=== PATIENT | male | born 1965 | race Caucasian/White ===

== ENCOUNTER 2017-10-13 05:17 | Inpatient (IN) | payer OTHER ==
[~2017-10-13] VITALS: Ht 170.2 cm; Wt 79.8 kg
[2017-10-13] VITALS (28 sets, daily range): BP systolic 106–137; BP diastolic 55–83; PULSE 59–77; RESP 11–22; Ht 170.2 cm; Wt 79.8 kg
[2017-10-13] MEDS ORDERED: SURGIFOAM POWDER 1 GM KIT ONE (06:48)
[2017-10-13] MEDS ORDERED: CA CHLORIDE 10% 10 ML SYRINGE ONE (06:49)
[2017-10-13] MEDS ORDERED: POLYMYXIN/BACITRACIN 1L IRRIG ONE (06:49)
[2017-10-13] MEDS ORDERED: BUPIVACAINE 0.25% (MPF) 30 ML INJ ONE (06:49)
[2017-10-13] MEDS ORDERED: THROMBIN 5000 UNIT VIAL ONE (06:49)
[2017-10-13] MEDS ORDERED: BUPIVACAINE 0.25%/EPI (SDV) 30 ML INJ ONE (06:54)
[2017-10-13] MEDS ORDERED: FENTAnyl 50 MCG/ML VIAL ONE ×3 (07:02→08:26)
--- NOTE | 2017-10-13 07:06 | HPN ---
Date/Time of Note Date/Time of Note DATE: 10/13/17 TIME: 07:06 Interval H&P Admission Note Pt. seen H&P reviewed: No system changes MUKUL RAMSAY MD Oct 13, 2017 07:06
[2017-10-13] MEDS ORDERED: HYDROmorphONE 0.2 MG/ML PCA IV SCH (07:30)
[2017-10-13] MEDS ORDERED: NALOXONE (0.4 MG/ML) INJ IV PRN (07:30)
[2017-10-13] MEDS ORDERED: DIPHENHYDRAMINE 50 MG INJ IV PRN ×2 (07:30→08:00)
[2017-10-13] MEDS ORDERED: HYDROmorphONE 0.5 MG/0.5 ML SYG IV PRN (07:30)
[2017-10-13] MEDS ORDERED: CYCLOBENZAPRINE 10 MG TAB PO PRN (07:30)
[2017-10-13] MEDS ORDERED: DIPHENHYDRAMINE 25 MG CAP PO PRN (07:30)
[2017-10-13] MEDS ORDERED: BISACODYL 10 MG SUPP PR PRN (07:30)
[2017-10-13] MEDS ORDERED: AL HYDROX/MG HYDROX/SIMETH 30 ML CUP PO PRN (07:30)
[2017-10-13] MEDS ORDERED: HYDROCODONE/APAP (10/325) TAB PO PRN ×2 (07:30)
[2017-10-13] MEDS ORDERED: ONDANSETRON 4 MG INJ IV PRN ×2 (07:30→08:00)
[2017-10-13] MEDS ORDERED: CEPASTAT LOZENGE MT PRN (07:30)
[2017-10-13] MEDS ORDERED: FENTAnyl 50 MCG/ML VIAL IV PRN ×3 (08:00)
[2017-10-13] MEDS ORDERED: MEPERIDINE 25 MG INJ IV PRN (08:00)
[2017-10-13] MEDS ORDERED: HYDROmorphONE (0.2 MG/ML) 10ML SYG IV PRN ×3 (08:00)
[2017-10-13] MEDS ORDERED: METOCLOPRAMIDE 10 MG INJ IV PRN (08:00)
[2017-10-13] MEDS ORDERED: ROCURONIUM 50 MG INJ ONE (08:34)
[2017-10-13] MEDS ORDERED: SUCCINYLCHOLINE CHLORIDE 100 MG/5 ML SYG IV ONE (08:34)
[2017-10-13] MEDS ORDERED: PROPOFOL 20 ML ONE (08:34)
[2017-10-13] MEDS ORDERED: LIDOCAINE 2% (SDV) 5 ML INJ ONE (08:34)
[2017-10-13] MEDS ORDERED: CEFAZOLIN 1 GM INJ ONE (08:34)
[2017-10-13] MEDS ORDERED: SUGAMMADEX SODIUM 200 MG/2 ML VIAL IV ONE (08:34)
[2017-10-13] MEDS ORDERED: HYDROmorphONE 0.2 MG/ML PCA ONE (09:11)
--- NOTE | 2017-10-13 09:17 | RADRPT ---
PROCEDURE: XR Lumbar Spine one view. CLINICAL INDICATION: Low back pain. Intraoperative. TECHNIQUE: Prone portable cross-table lateral. COMPARISON: No prior studies are available for comparison. FINDINGS: For the purposes of this report, the last apparent true disc level is considered to be L5-S1. Based on this, the posterior surgical instrument is present overlying the L3-4 level. IMPRESSION: 1. Intraoperative imaging as described above. RPTAT: QQ .Dereck Talamantes MD, MD Date Time Electronically viewed and signed by .Dereck Talamantes MD, on 10/13/2017 09:17 .R/
--- NOTE | 2017-10-13 09:18 | RADRPT ---
PROCEDURE: XR Lumbar Spine one view. CLINICAL INDICATION: Low back pain. Intraoperative. TECHNIQUE: Prone portable cross-table lateral. COMPARISON: No prior studies are available for comparison. FINDINGS: For the purposes of this report, the last apparent true disc level is considered to be L5-S1. Based on this, the posterior needle markers are present overlying the L4 spinous process level and S1 spi nous process level. IMPRESSION: 1. Intraoperative imaging as described above. RPTAT: QQ .Dereck Talamantes MD, Date Time Electronically viewed and signed by .Dereck Talamantes MD, on 10/13/2017 09:18 .R/
--- NOTE | 2017-10-13 09:24 | SIPON ---
Date/Time of Note Date/Time of Note DATE: 10/13/17 TIME: 09:23 Operative Report Preoperative Diagnosis lumbar stenosis Postoperative Diagnosis lumbar stenosis Operation/Procedure Performed lumbar decompression Surgeon see signature line executive marketing assistant alexia serrano Anesthesia: general Estimated blood loss: 10 - 50 ml's Transfusion Required none Specimen none Grafts/Implants none Complications none MUKUL RAMSAY MD Oct 13, 2017 09:24
--- NOTE | 2017-10-13 10:14 | CONS ---
Date/Time of Note Date/Time of Note DATE: 10/13/17 TIME: 10:10 Assessment/Plan Assessment/Plan Problems: (1) S/P lumbar laminectomy Onset Date: ~ 10/13/2017 Status: Acute Comment: He is seen in postanesthesia recovery. At this time he is doing well without evidence of complications postop. Is cleared to go to regular orthopedic floor for management of her rehabilitation. Rehabilitation next potential is expected to be good (2) Migraine syndrome Status: Chronic Comment: Noted. He has relatively active migraine syndrome given his age however does not meet criteria for prophylactic therapy (3) Sleep apnea in adult Status: Chronic Comment: Noted. (4) Left rotator cuff tear arthropathy Status: Chronic Comment: Noted. Be aware of this during rehabilitation Consultation Date/Type/Reason Admit Date/Time Oct 13, 2017 at 05:17 Date of Consultation: Oct 13, 2017 Type of Consultation: Internal medicine Reason for Consultation Postoperative assistance after lumbar laminectomy L4-5 L5-S1 Referring Provider: MUKUL RAMSAY MD Hx of Present Illness Charmil 52-year-old gentleman who is brought in after outpatient failure to respond to conservative treatment for lumbar disc disease. He is now postoperative. Constitutional: no complaints Eyes: no complaints ENT: no complaints Respiratory: no complaints (Please note he had a recent bronchitis that was treated with initially albuterol and then with Advair. This fully resolved and was an isolated event) Cardiovascular: no complaints Gastrointestinal: no complaints Genitourinary: no complaints Musculoskeletal: back pain Skin: no complaints Neurologic: other (Migraine syndrome he takes ibuprofen for this 3 days per month) Endocrine: no complaints Lymphatic: no complaints Psychological: nl mood/affect, no complaints Immunologic: no complaints Past Medical History Medical History: other (Migraine syndrome; obstructive sleep apnea; left rotator cuff inflammation) Past Surgical History Past Surgical Hx: other (She is status post right shoulder arthroscopy. Status post left-sided L4-5 discectomy in 2002) Family History Significant Family History: no pertinent family hx Social History Alcohol Use: none Smoking Status: Never smoker Drug Use: none Exam/Review of Systems Vital Signs Vitals Vital Signs Date Time Temp Pulse Resp B/P Pulse Ox O2 Delivery O2 Flow Rate FiO2 10/13/17 09:56 64 14 124/75 97 Room Air 10/13/17 09:19 97.8 Exam Constitutional: alert, oriented Head: atraumatic, normocephalic Eyes: EOMI, PERRL, nl conjunctiva, nl lids, nl sclera ENMT: mucosa pink and moist, nl external ears & nose, nl lips & teeth, nl nasal mucosa & septum Neck: non-tender, supple Respiratory: clear to auscultation, normal air movement Cardiovascular: nl pulses, regular rate and rhythm Gastrointestinal: nl liver, spleen, non-tender, soft Musculoskeletal: nl extremities to inspection, other (Nonambulatory. Some limited [place] limitation of rotation at the left shoulder) Extremities: normal pulses Neurological: CLOTH HANDLER II-XII intact, nl mental status, nl speech, nl strength Skin: nl turgor, rash or lesions Lymph: nl lymph nodes Medications Medications Current Medications Potassium Chloride/Dextrose/ Sod Cl (D5-1/2ns + KCl 20 Meq) 1,000 ml @ 100 mls/ hr Q10H IV ; Start 10/13/17 at 07:06 Acetaminophen/ Hydrocodone Bitart ([place] (10/325)) 1 tab Q4H PRN PO PAIN LEVEL 1-5; Start 10/13/17 at 07:30; Status UNV Acetaminophen/ Hydrocodone Bitart ([place] (10/325)) 2 tab Q4H PRN PO PAIN LEVEL 6-10; Start 10/13/17 at 07:30; Status UNV Hydromorphone HCl 0.2 mg 0.2 mg Q1H PRN IV BREAKTHROUGH PAIN; Start 10/13/17 at 07:30; Status UNV Cefazolin Sodium (Ancef 1 Gm/50 ml (Pmx)) 50 ml @ 100 mls/hr Q8H IVPB ; Start 10/13/17 at 16:00; Stop 10/14/17 at 08:29 Ondansetron HCl (Zofran Inj) 4 mg Q6H PRN IV NAUSEA AND/OR VOMITING; Start at 07:30; Status UNV Bisacodyl (Dulcolax Supp) 10 mg DAILY PRN [place] CONSTIPATION; Start 10/13/17 at 07:30; Status UNV Docusate Sodium (Colace) 100 mg BID PO ; Start 10/13/17 at 12:00 Pantoprazole (Protonix Iv) 40 mg DAILY@06 IV ; Start 10/14/17 at 06:00; Status UNV Al Hydrox/Mg Hydrox/Simethicone (Mag-Al Plus) 15 ml Q6H PRN PO CONSTIPATION/ DYSPEPSIA; Start 10/13/17 at 07:30; Status UNV Acetaminophen (Tylenol Tab) 650 mg Q4H PRN PO SAWYER OR TEMP GREATER THAN 101.3F; Start 10/13/17 at 07:30 Cyclobenzaprine HCl (Flexeril) 10 mg TID PRN PO MUSCLE SPASMS; Start 10/13/17 at 07:30; Status UNV Phenol (Cepastat Lozenge) 1 lozenge PRN PRN [place] SORE THROAT; Start 10/13/17 at 07:30; Status UNV Diphenhydramine HCl (Benadryl) 25 mg Q6H PRN PO ITCHING; Start 10/13/17 at 07: 30 Diphenhydramine HCl (Benadryl) 25 mg Q6H PRN IV ITCHING; Start 10/13/17 at 07: 30 Naloxone HCl (Narcan) 0.2 mg Q2M PRN IV RR 8 BREATHS/MIN OR LESS; Start at 07:30 Hydromorphone HCl (Dilaudid TECHNICAL OPERATIONS VICE PRESIDENT) TECHNICAL OPERATIONS VICE PRESIDENT to be started in PACU Q4PCA IV Last administered on 10/13/17t 09:33; Admin Dose 6 MG; Start 10/13/17 at 07:30 Miscellaneous Information 1. Hold TECHNICAL OPERATIONS VICE PRESIDENT at 1,000... TECHNICAL OPERATIONS VICE PRESIDENT IV ; Start 10/13/17 at 07 :30 SHAN SAEED MD Oct 13, 2017 10:14
--- NOTE | 2017-10-13 10:27 | OPR ---
DATE OF OPERATION: 10/13/2017 PREOPERATIVE DIAGNOSES: 1. Right L4-L5 and L5-S1 stenosis with radiculopathy. 2. History of left L5-S1 decompression. 3. Transitional S1 vertebra. POSTOPERATIVE DIAGNOSES: 1. Right L4-L5 and L5-S1 stenosis with radiculopathy. 2. History of left L5-S1 decompression. 3. Transitional S1 vertebra. OPERATION PERFORMED: 1. Right L4-L5 and right L5-S1 decompression with decompression right L4, L5, and S1 nerve roots. 2. Use of operative microscope. 3. Lateral localizing film x2. 4. Intraoperative neuromonitoring (1.5 hours). PRIMARY SURGEON: Abbe Luajn MD YARN WRAPPER: Josue Jimenes. FINDINGS: Neuromonitoring at the start of the case revealed right L4 amplitude down 30%, left L5 do wn 20%, right L5 down 30%, left S1 down 10%, right S1 down 60%. At the end of the case, nerve signa ls returned to normal. The patient had right-sided stenosis at L4-5 and L5-S1. ESTIMATED BLOOD LOSS: 40 mL. DRAINS: None. SPECIMENS: None. COMPLICATIONS OF PROCEDURES: None. ANESTHESIOLOGIST: Jermaine. TYPE OF ANESTHESIA: General. INDICATIONS FOR PROCEDURE: This is a 52-year-old gentleman who had previously undergone left L5-S1 decompression. He developed right lumbosacral radiculopathy in the setting of stenosis. He failed nonoperative measures; therefore, I recommended proceeding with the above-mentioned surgery. Preope ratively, we discussed the risks, benefits, and alternatives. He understood and wished to proceed. DESCRIPTION OF PROCEDURE IN DETAIL: The patient was identified in the preoperative holding area, [facility], taken to the operating room, where he was successfully placed under general an esthesia. Neuromonitoring leads were placed, sequential compressive devices were applied. Neuromon itoring was utilized during the procedure for 1.5 hours to include SSEP, MEP, and EMG. This was per formed by [employer]. Start time was 7:30, end time was 9:00 a.m. The patient was placed on the operating room table in prone position over a [place] frame. All bony prominences were well padd ed. The back was then prepped and draped in the usual sterile fashion. Spinal needles were placed and lateral localizing films obtained to confirm the correct levels. Once this was confirmed, I inj ected the skin and subcutaneous tissue with Marcaine and epinephrine. Incision was made over the L4 -5 and L5-S1 level. I took care to confirm the correct levels as the patient has a transitional S1 vertebra. I incised down to dorsal fascia, which was incised with Bovie cautery. I then subperiost eally dissected the right L4 and L5 lamina. Leyla retractor was placed. [place] was then placed under what was felt to be the lamina and lateral localizing films obtained to confirm the correct le vels. Once this was confirmed, microscope was brought in and a right-sided hemilaminotomy, partial medial facetectomy, and foraminotomy was performed at L4-5 and L5-S1. Ligamentum flavum was then sh arply dissected. I decompressed the lateral recess. I decompressed the canal and the right L4, L5, and S1 nerve roots for stenosis. Once this was done, all nerve signals returned to normal. I exam ined the disks and there was no evidence of disk herniations. I achieved hemostasis with bipolar ca utery and Surgifoam. I irrigated the wound. There was no leak of CSF after Valsalva maneuver was p erformed. The wound was dry and therefore, I elected not to place a drain. I passed an epidural ca theter through which I injected 100 mcg of fentanyl. Catheter was pulled. PPP and thrombin were in jected over the dura for hemostatic purposes. The retractors were removed. This was done of course after irrigation. I then closed the deep fascia with #1 Vicryl stitch. I closed subcutaneous tiss ue with 2-0 Vicryl stitch. A 4-0 Monocryl closure was then performed. Dermabond was then applied. The patient was then awakened from anesthesia and taken to recovery room in stable condition. Lap, sponge, and instrument counts were correct x2. There were no apparent complications during the pro cedure. The patient will be admitted to the orthopedic shah for routine postoperative care to include pain c ontrol, neurovascular checks, antibiotics, and physical therapy. Dictated By: ABBE YOUNG/SAIRA Conf#: [id number] DID#: [id number]
[2017-10-13] MEDS: D5W-0.45 NACL + KCL 20 MEQ 1,000 ML IV SCH ×3 (11:52→22:13)
[2017-10-13] MEDS: DOCUSATE SODIUM 100 MG CAP PO SCH ×2 (11:52→22:12)
[2017-10-13] MEDS: ACETAMINOPHEN 325 MG TAB PO PRN ×2 (12:01→22:19)
[2017-10-13] MEDS: CEFAZOLIN 1 GM/50 ML (PMX) 50 ML IVPB SCH (16:33)
[2017-10-14] MEDS: CEFAZOLIN 1 GM/50 ML (PMX) 50 ML IVPB SCH ×2 (00:15→08:29)
[2017-10-14 02:49] VITALS: BP 114/63; RESP 21
[2017-10-14 05:29] LABS: ABNORMAL IP MESSAGE 1; BASOPHILS % 0.2 % (0.0-2.0); EOSINOPHILS # 0.1 10^3/ul (0.0-0.5); EOSINOPHILS % 0.5 % (0.0-7.0); HEMATOCRIT 39.5 % (42.0-52.0); HEMOGLOBIN 13.5 g/dl (14.0-18.0); LYMPHOCYTES # 2.3 10^3/ul (0.8-2.9); LYMPHOCYTES % 18.7 % (15.0-51.0); MEAN CORPUSCULAR HGB CONC 34.2 g/dl (32.0-37.0); MEAN CORPUSCULAR VOLUME 90.6 fl (82.0-101.0); MONOCYTE # 1.6 10^3/ul (0.3-0.9); MONOCYTES % 12.8 % (0.0-11.0); NEUTROPHIL # 8.2 10^3/ul (1.6-7.5); NEUTROPHILS % 67.1 % (39.0-77.0); PLATELET COUNT 199 10^3/UL (140-415); POSITIVE DIFF @See below; RED BLOOD COUNT 4.36 10^6/ul (4.70-6.10); RED CELL DISTRIBUTION WIDTH 12.4 % (11.5-14.5); WHITE BLOOD COUNT 12.3 10^3/ul (4.8-10.8)
[2017-10-14 05:56] LABS: CREATININE 1.16 mg/dl (0.61-1.24); POTASSIUM 4.1 mmol/L (3.5-5.1)
[2017-10-14] MEDS ORDERED: PANTOPRAZOLE 40 MG INJ IV SCH (06:00)
[2017-10-14] MEDS: ACETAMINOPHEN 325 MG TAB PO PRN (06:21)
[2017-10-14 08:27] VITALS: BP 127/71; RESP 20
[2017-10-14] MEDS: DOCUSATE SODIUM 100 MG CAP PO SCH (08:29)
[2017-10-14] MEDS ORDERED: SUMATRIPTAN 50 MG TAB PO ONE (10:00)
[2017-10-14] MEDS ORDERED: ACETAMINOPHEN 325 MG TAB PO ONE (10:00)
--- NOTE | 2017-10-14 12:07 | DS ---
Date/Time of Note Date/Time of Note DATE: 10/14/17 TIME: 12:07 Discharge Summary Admission/Discharge Info Admit Date/Time Oct 13, 2017 at 05:17 Discharge Date/Time October 14 Discharge Diagnosis Lumbar stenosis Procedures Lumbar decompression Hospital Course The patient was admitted to the orthopedic shah after undergoing the above procedure. Postoperative course was uncomplicated. By postoperative day 1 the patient was deemed stable for discharge with follow-up arranged with the undersigned. Primary Care Provider Not On Staff Doctor Pending Labs Laboratory Tests Test 10/14/17 05:07 White Blood Count 12.310^3/ul (4.8-10.8) Red Blood Count 4.3610^6/ul (4.70-6.10) Hemoglobin 13.5g/dl (14.0-18.0) Hematocrit 39.5% (42.0-52.0) Mean Corpuscular Volume 90.6fl (82.0-101.0) Mean Corpuscular Hemoglobin 31.0pg (29.0-33.0) Mean Corpuscular Hemoglobin Concent 34.2g/dl (32.0-37.0) Red Cell Distribution Width 12.4% (11.5-14.5) Platelet Count 86337^3/UL (140-415) Mean Platelet Volume 10.0fl (7.4-10.4) Neutrophils % 67.1% (39.0-77.0) Lymphocytes % 18.7% (15.0-51.0) Monocytes % 12.8% (0.0-11.0) Eosinophils % 0.5% (0.0-7.0) Basophils % 0.2% (0.0-2.0) Nucleated Red Blood Cells % 0.0/100WBC (0.0-0.0) Neutrophils # 8.210^3/ul (1.6-7.5) Lymphocytes # 2.310^3/ul (0.8-2.9) Monocytes # 1.610^3/ul (0.3-0.9) Eosinophils # 0.110^3/ul (0.0-0.5) Basophils # 0.010^3/ul (0.0-0.1) Nucleated Red Blood Cells # 0.010^3/ul (0.0-0.0) Sodium Level 140mmol/L (135-144) Potassium Level 4.1mmol/L (3.5-5.1) Chloride Level 104mmol/L (97-110) Carbon Dioxide Level 29mmol/L (21-31) Anion Gap 11 (8-16) Blood Urea Nitrogen 15mg/dl (7-20) Creatinine 1.16mg/dl (0.61-1.24) Glucose Level 133mg/dl (70-220) Calcium Level 9.0mg/dl (8.4-10.2) Magnesium Level 2.0mg/dl (1.7-2.5) MUKUL RAMSAY MD Oct 14, 2017 12:07
[2017-10-14] MEDS: D5W-0.45 NACL + KCL 20 MEQ 1,000 ML IV SCH (13:06)
--- NOTE | 2017-10-14 14:37 | CONS ---
Date/Time of Note Date/Time of Note DATE: 10/14/17 TIME: 14:36 Assessment/Plan Assessment/Plan Chief Complaint/Hosp Course Tatiana 52-year-old gentleman who is brought in after outpatient failure to respond to conservative treatment for lumbar disc disease. He is now postoperative. Problems: (1) S/P lumbar laminectomy Onset Date: ~ 10/13/2017 Status: Acute Comment: Has been ambulating with physical therapy doing well. Concur with discharge home and outpatient physical therapy (2) Migraine syndrome Status: Chronic Comment: Adequate control Consultation Date/Type/Reason Admit Date/Time Oct 13, 2017 at 05:17 Initial Consult Date 10/13/17 Type of Consultation: Internal medicine Reason for Consultation Status post lumbar spinal surgery Referring Provider: MUKUL RAMSAY MD 24 HR Interval Summary Constitutional: no complaints Detailed Summary Respiratory: no complaints Cardiovascular: no complaints Gastrointestinal: no complaints Musculoskeletal: back pain Neurologic: headache (Migraine resolved) Exam/Review of Systems Vital Signs Vitals Vital Signs Date Time Temp Pulse Resp B/P Pulse Ox O2 Delivery O2 Flow Rate FiO2 10/14/17 08:27 98.6 73 20 127/71 96 10/13/17 16:00 Room Air Intake and Output 10/13/17 10/13/17 10/14/17 14:59 22:59 06:59 Intake Total 1500 ml 1000 ml 1250 ml Output Total 20 ml 800 ml 800 ml Balance 1480 ml 200 ml 450 ml Exam Constitutional: alert, oriented Neck: non-tender, supple Respiratory: clear to auscultation, normal air movement Cardiovascular: nl pulses, regular rate and rhythm Results Result Diagram: 10/14/17 0507 10/14/17 0507 Results 24 hrs Laboratory Tests Test 10/14/17 05:07 White Blood Count 12.3 H Red Blood Count 4.36 L Hemoglobin 13.5 L Hematocrit 39.5 L Mean Corpuscular Volume 90.6 Mean Corpuscular Hemoglobin 31.0 Mean Corpuscular Hemoglobin Concent 34.2 Red Cell Distribution Width 12.4 Platelet Count 199 Mean Platelet Volume 10.0 Neutrophils % 67.1 Lymphocytes % 18.7 Monocytes % 12.8 H Eosinophils % 0.5 Basophils % 0.2 Nucleated Red Blood Cells % 0.0 Neutrophils # 8.2 H Lymphocytes # 2.3 Monocytes # 1.6 H Eosinophils # 0.1 Basophils # 0.0 Nucleated Red Blood Cells # 0.0 Sodium Level 140 Potassium Level 4.1 Chloride Level 104 Carbon Dioxide Level 29 Anion Gap 11 Blood Urea Nitrogen 15 Creatinine 1.16 Glucose Level 133 Calcium Level 9.0 Magnesium Level 2.0 Medications Medications Current Medications Potassium Chloride/Dextrose/ Sod Cl (D5-1/2ns + KCl 20 Meq) 1,000 ml @ 100 mls/ hr Q10H IV Last administered on 10/13/17 22:13; Admin Dose 100 MLS/HR; Start 10/13/17 at 07:06 Acetaminophen/ Hydrocodone Bitart ([place] (10/325)) 1 tab Q4H PRN PO PAIN LEVEL 1-5; Start 10/13/17 at 07:30 Acetaminophen/ Hydrocodone Bitart ([place] (10/325)) 2 tab Q4H PRN PO PAIN LEVEL 6-10; Start 10/13/17 at 07:30 Hydromorphone HCl (Dilaudid) 0.2 mg Q1H PRN IV BREAKTHROUGH PAIN; Start at 07:30 Ondansetron HCl (Zofran Inj) 4 mg Q6H PRN IV NAUSEA AND/OR VOMITING Last administered on 10/13/17 14:17; Admin Dose 4 MG; Start 10/13/17 at 07:30 Bisacodyl (Dulcolax Supp) 10 mg DAILY PRN [place] CONSTIPATION; Start 10/13/17 at 07:30 Docusate Sodium (Colace) 100 mg BID PO Last administered on 10/14/17 08:29; Admin Dose 100 MG; Start 10/13/17 at 12:00 Pantoprazole (Protonix Iv) 40 mg DAILY@06 IV Last administered on 10/14/17 06 :21; Admin Dose 40 MG; Start 10/14/17 at 06:00 Al Hydrox/Mg Hydrox/Simethicone (Mag-Al Plus) 15 ml Q6H PRN PO CONSTIPATION/ DYSPEPSIA; Start 10/13/17 at 07:30 Acetaminophen (Tylenol Tab) 650 mg Q4H PRN PO SAWYER OR TEMP GREATER THAN 101.3F Last administered on 10/14/17 06:21; Admin Dose 650 MG; Start 10/13/17 at 07: 30 Cyclobenzaprine HCl (Flexeril) 10 mg TID PRN PO MUSCLE SPASMS; Start 10/13/17 at 07:30 Phenol (Cepastat Lozenge) 1 lozenge PRN PRN [place] SORE THROAT; Start 10/13/17 at 07:30 Diphenhydramine HCl (Benadryl) 25 mg Q6H PRN PO ITCHING; Start 10/13/17 at 07: 30 Diphenhydramine HCl (Benadryl) 25 mg Q6H PRN IV ITCHING; Start 10/13/17 at 07: 30 Naloxone HCl (Narcan) 0.2 mg Q2M PRN IV RR 8 BREATHS/MIN OR LESS; Start at 07:30 Hydromorphone HCl (Dilaudid NEONATAL NURSE) NEONATAL NURSE to be started in PACU Q4PCA IV Last administered on 10/13/17t 09:33; Admin Dose 6 MG; Start 10/13/17 at 07:30 Miscellaneous Information 1. Hold NEONATAL NURSE at 1,000... NEONATAL NURSE IV ; Start 10/13/17 at 07 :30 SHAN SAEED MD Oct 14, 2017 14:36
== END 2017-10-14 14:43 | disposition home or self-care (01) | DRG 517 ==
LOC: REC 05:17 → EDSTATUS 07:00 → MS1 10:27
PROVIDERS: ADMIT Specialist; ATTEND Specialist
PROC: 01NB0ZZ Release Lumbar Nerve, Open Approach (ICD-10-PCS; principal; 2017-10-13 07:00)
DX: M48.07 Spinal stenosis, lumbosacral region (principal); E66.9 Obesity, unspecified; G47.30 Sleep apnea, unspecified; M54.17 Radiculopathy, lumbosacral region; M48.061 Spinal stenosis, lumbar region without neurogenic claudication; G43.909 Migraine, unspecified, not intractable, without status migrainosus; Z68.27 Body mass index [BMI] 27.0-27.9, adult
CPT/HCPCS: 72020; 80048; 83735; 85025; 86999; 97116; 97163; 97530; C9113; J0690; J1170; J2405; J3010; J3480